=== PATIENT | male | born 2000 | race African-American/Black ===

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

== ENCOUNTER 2021-06-03 16:32 | Emergency (ER) | payer MEDICARE, MEDICAID, SELFPAY ==
[2021-06-03 16:45] VITALS: BP 141/72; PULSE 103; RESP 17; TEMP 37.9; O2SAT 99; BMI 22.5
[2021-06-03 17:16] LABS: COVID19 -Nasal RAPID Negative (Negative)
--- NOTE | 2021-06-03 19:55 | ED_ITS ---
HPI - URI/Sore Throat <Rommel Keating PA-C - Last Filed: 06/03/21 20:04> General Chief Complaint: Upper Respiratory Symptoms Stated Complaint: STATES HAS STREP THROAT Time Seen by Provider: 06/03/21 18:06 Source: patient Mode of arrival: Ambulatory History of Present Illness HPI Narrative: 21-year-old male with a history of asthma presents to the ED with 3 days of sore throat. Patient endorses fever, sore throat, pain with swallowing, tonsillar exudates, ear pain. Patient denies cough, chest pain, shortness of breath, nausea, vomiting, abdominal pain, lightheadedness, dizziness, syncope. Related Data Previous Rx's Medication Instructions Recorded penicillin V potassium 500 mg 1,000 mg PO BID 10 Days #40 tab 06/03/21 tablet Allergies Allergy/AdvReac Type Severity Reaction Status Date / Time No Known Drug Allergies Allergy Verified 06/03/21 16:48 Review of Systems <Rommel Keating PA-C - Last Filed: 06/03/21 20:04> Review of Systems ROS Unobtainable: All systems reviewed & are unremarkable except as noted in HPI and below Constitutional Constitutional: Denies chills, Denies fatigue, Reports fever(s), Denies frequent falls, Denies lethargy and Denies weakness Eyes Eyes: Denies change in vision, Denies eye discharge, Denies irritation and Denies loss of vision ENT Ears, Nose, Mouth, and Throat: Denies change in voice, Denies dizziness, Reports otalgia, Denies neck pain, Reports sore throat and Denies throat swelling Comments: Pain with swallowing Cardiovascular Cardiovascular: Denies chest pain, Denies irregular heart rhythm, Denies lighthe adedness, Denies palpitations, Denies dyspnea, Denies dyspnea on exertion and Denies orthopnea Respiratory Respiratory: Denies cough, Denies dyspnea, Denies dyspnea on exertion and Denies wheezing Gastrointestinal Gastrointestinal: Denies abdominal pain, Denies change in bowel habits, Denies diarrhea, Denies nausea and Denies vomiting Genitourinary Genitourinary: Denies hematuria, Denies flank pain, Denies urinary incontinence and Denies urinary urgency Musculoskeletal Musculoskeletal: Denies back pain, Denies muscle weakness, Denies neck pain, Denies numbness and Denies tingling Integumentary/Breasts Skin/Breast: Denies pruritus, Denies erythema, Denies rash and Denies wounds Neurologic Neurologic: Denies behavioral changes, Denies confusion, Denies dizziness, Denies frequent falls, Denies loss of vision, Denies numbness, Denies tingling and Denies weakness Psychiatric Psychiatric: Denies anxiety, Denies behavioral changes, Denies confusion, Denies depression, Denies homicidal ideation and Denies suicidal ideation Endocrine Endocrine: Denies fatigue, Denies flushing and Denies palpitations Hematologic/Lymphatic Hematologic/Lymphatic: Denies easy bruising Allergic/Immunologic Allergic/Immunologic: Denies urticaria, Denies throat swelling and Denies wheezing Patient History <Rommel Keating PA-C - Last Filed: 06/03/21 20:04> Medical History Healthy adult Surgical History No pertinent past surgical history Social History marital status: unmarried,single lives independently: Yes Smoking Status: Current every day smoker Smoking Status: Current every day smoker tobacco type: vaping alcohol intake frequency: a few times a month Substance Use Type: marijuana Exam <Rommel Keating PA-C - Last Filed: 06/03/21 20:04> Initial Vital Signs Initial Vital Signs: Vital Signs Temperature 100.2 F H 06/03/21 16:45 Pulse Rate 103 H 06/03/21 16:45 Respiratory Rate 17 06/03/21 16:45 Blood Pressure 141/72 H 06/03/21 16:45 Pulse Oximetry 99 06/03/21 16:45 Const General: cooperative and healthy appearing [facility] Head: normal to inspection Ears: hearing grossly normal bilaterally, external ears normal, TM's normal bilaterally and mastoids normal Nose: external nose normal and nares normal Face and sinus: normal facial exam and sinuses nontender Mouth: oral mucosae normal Throat: uvula midline and posterior oropharynx abnormal (Bilateral tonsillar exudates, erythematous posterior oropharynx) exudates and other (Airway patent) Neck Neck: normal visual inspection, full ROM, no meningeal signs, trachea midline and lymphadenopathy Other: Anterior cervical lymphadenopathy Chest Chest: normal inspection of the chest Resp Effort & Inspection: normal respiratory effort Auscultation: clear to auscultation bilaterally Cardio Rate: regular rate Rhythm: regular rhythm Skin General: no rashes or lesions noted Neuro General: patient alert, patient awake and patient oriented x3 <Jorge Guerra DO - Last Filed: 06/04/21 07:03> Initial Vital Signs Initial Vital Signs: Vital Signs Temperature 100.2 F H 06/03/21 16:45 Pulse Rate 103 H 06/03/21 16:45 Respiratory Rate 17 06/03/21 16:45 Blood Pressure 141/72 H 06/03/21 16:45 Pulse Oximetry 99 06/03/21 16:45 Course <Rommel Keating PA-C - Last Filed: 06/03/21 20:04> Orders Ordered: Discontinued Medications Penicillin V Potassium (Penicillin Vk 250 Mg/5 Ml Susp) 500 mg PO NOW ONE Stop: 06/03/21 18:26 Last Admin: 06/03/21 18:34 Dose: Not Given Documented by: ELE Vital Signs Vital signs: Vital Signs - 8 hr 06/03/21 16:45 Temperature 100.2 F H Pulse Rate 103 H Respiratory Rate 17 Blood Pressure 141/72 H Pulse Oximetry 99 <Jorge Guerra DO - Last Filed: 06/04/21 07:03> Orders Ordered: Discontinued Medications Penicillin V Potassium (Penicillin Vk 250 Mg/5 Ml Susp) 500 mg PO NOW ONE Stop: 06/03/21 18:26 Last Admin: 06/03/21 18:34 Dose: Not Given Documented by: ELE Vital Signs Vital signs: Vital Signs - 8 hr 06/03/21 16:45 Temperature 100.2 F H Pulse Rate 103 H Respiratory Rate 17 Blood Pressure 141/72 H Pulse Oximetry 99 MDM - URI/Sore Throat <CHIDI Bermeo Last Filed: 06/03/21 20:04> Lab Data Labs: Lab Results 06/03/21 Range/Units 16:40 SARS-CoV-2 (PCR) Negative (Negative) Point of Care Testing Rapid Strep A Negative MDM Narrative Medical decision making narrative: 21-year-old male with a history of asthma presents to the ED with 3 days of sore throat. Concern for strep pharyngitis versus viral pharyngitis. Centor score 4. Will treat with penicillin V potassium. Will discharge home with ED return precautions. <Jorge Guerra DO - Last Filed: 06/04/21 07:03> Lab Data Labs: Lab Results 06/03/21 Range/Units 16:40 SARS-CoV-2 (PCR) Negative (Negative) Point of Care Testing Rapid Strep A Negative Discharge Plan Departure Patient Disposition: Home Clinical Impression: Pharyngitis Instructions: DI for Strep Throat Activity Restrictions/Additional Instructions: You were evaluated in the ED today for a sore throat. You likely have strep pharyngitis, your been started on penicillin. Please complete the full course of the antibiotics. Return to the ED if your symptoms worsen you have trouble swallowing, you have trouble breathing, you have worsening fever. May follow-up with your PCP. Prescriptions: New penicillin V potassium 500 mg tablet 1,000 mg PO BID 10 Days Qty: 40 0RF Referrals: Lorenzo Marshall MD [Primary Care Provider] - <Jorge Guerra DO - Last Filed: 06/04/21 07:03> Cosign ED Attending Cosignature Attestation: Dr Guerra Co-Sign Statement: I was available for consultation during this patient's emergency department visit. This chart is signed by myself for administrative purposes only. I did not have direct contact with this patient during this visit. They were seen independently by the APC.
== END 2021-06-03 18:36 | disposition home or self-care (01) ==
PROVIDERS: Emergency Medicine; Emergency Provider Student in an Organized Health Care Education/Training Program; Family Provider Pediatrics; PCP Pediatrics
DX: J02.0 Streptococcal pharyngitis (principal); Z20.822 Contact with and (suspected) exposure to COVID-19
CPT/HCPCS: 87070; 87077; 87147; 87635; 87880; 99281; C9803